=== PATIENT | female | born 1960 | race Caucasian/White ===

== ENCOUNTER 2016-05-30 09:27 | Emergency (ER) | payer OTHER ==
[2016-05-30 11:30] VITALS: BP 112/74
--- NOTE | 2016-05-30 11:48 | UC ---
Eye Complaint HPI - HPI Summary HPI Summary: 2 days ago woke from nap in the afternoon with R eye pain. Looked under eyelid and saw large white cyst. Since then pain has markedly improved, but now R eyelid is red and puffy. Denies any welding, grinding, hammering, or overhead work. No FB sensation or photophobia. No hx of eye surgeries. - History of Current Complaint Chief Complaint: UCEye Stated Complaint: EYE ISSUE Time Seen by Provider: 05/30/16 11:34 Hx Obtained From: Patient ?: No Onset/Duration: Sudden Onset Timing: Constant Severity Initially: Moderate Severity Currently: Mild Location of Injury: Eye Lid (upper) Aggravating Factor(s): Nothing Alleviating Factor(s): Nothing Associated Signs And Symptoms: Positive: Swelling - R eyelid. Negative: Photophobia, Drainage (Purulent), Vision Impairment Right, Vision Impairment Left - Risk Factors Penetrating Injury Risk Factor: Negative Acute Glaucoma Risk Factors: Negative - Allergies/Home Medications Allergies/Adverse Reactions: Allergies Allergy/AdvReac Type Severity Reaction Status Date / Time Unable to Obtain Allergy Verified 05/30/16 11:31 Home Medications: Home Medications Atenolol TAB* [Tenormin TAB* 25 MG] 25 mg PO DAILY 05/30/16 [History Confirmed 05/30/16] Lamotrigine [Lamictal] 300 mg PO 05/30/16 [History] Tranylcypromine Sulfate [Parnate] 10 mg PO 05/30/16 [History] traZODone TAB* [Desyrel TAB*] 50 mg PO BEDTIME 05/30/16 [History Confirmed 05/30] PMH/Surg Hx/FS Hx/Imm Hx Cardiovascular History Of: Reports: Hypertension - Surgical History Surgical History: Yes Surgery Procedure, Year, and Place: appy, knee replacement, lumpectomy from breast - Family History Known Family History: Positive: Hypertension - Social History Alcohol Use: Occasionally Substance Use Type: None Smoking Status (MU): Never Smoked Tobacco Review of Systems Constitutional: Negative Skin: Other - R eyelid swelling Eyes: Other - R eye irritation ENT: Negative Respiratory: Negative Cardiovascular: Negative Gastrointestinal: Negative Genitourinary: Negative Motor: Negative Neurovascular: Negative Musculoskeletal: Negative Neurological: Negative Psychological: Negative All Other Systems Reviewed And Are Negative: Yes Physical Exam Triage Information Reviewed: Yes Appearance: Well-Appearing, No Pain Distress, Well-Nourished Vital Signs: Initial Vital Signs Temp 98.2 F 05/30/16 11:27 Pulse 74 05/30/16 11:27 Resp 18 05/30/16 11:27 BP 112/74 05/30/16 11:27 Pulse Ox 98 05/30/16 11:27 Vital Signs Reviewed: Yes Eye Exam: Other - R upper eyelid red, swollen Eyes: Positive: Conjunctiva Clear, Other: - No photophobia. R upper eyelid everted, small stye noted medially. ENT Exam: Normal ENT: Positive: Normal ENT inspection, Hearing grossly normal, Pharynx normal, TMs normal Dental Exam: Normal Neck exam: Normal Neck: Positive: Supple, Nontender, No Lymphadenopathy Respiratory Exam: Normal Respiratory: Positive: Chest non-tender, Lungs clear, Normal breath sounds, No respiratory distress, No accessory muscle use Cardiovascular Exam: Normal Cardiovascular: Positive: RRR, No Murmur Musculoskeletal Exam: Normal Neurological Exam: Normal Neurological: Positive: Alert Psychological Exam: Normal Eye Complaint Course/Dx - Differential Dx/Diagnosis Provider Diagnoses: R eye stye Discharge - Discharge Plan Condition: Stable Disposition: HOME Patient Education Materials: Suze (ED) Additional Instructions: Apply frequent warm packs. If you do not see clear improvement in the next 48 hours, please come back here for a recheck. Come back at any time if you have visual changes or sudden worsening.
== END 2016-05-30 11:55 | disposition home or self-care (01) ==
LOC: UCEAST 09:27
DX: H00.011 Hordeolum externum right upper eyelid (principal)
CPT/HCPCS: 99201; G0463